=== PATIENT | female | born 1995 | race Two or more races ===

== ENCOUNTER → 2017-11-13 00:32 | Emergency (ER) | payer OTHER ==
[~2017-11-13 00:32] MED LIST: Ibuprofen TAB* 800 MG PO ONE
--- NOTE | 2017-11-13 01:29 | ED ---
Throat Pain/Nasal Congestion - HPI Summary HPI Summary: This patient is a 22 year old F presenting to [facility] with a chief complaint of for the last two days. The patient rates the pain 6/10 in severity. Patient reports trouble breathing due to pain. Patient denies fever, chills, and NVD. Pt is concerned for strep throat. - History of Current Complaint Chief Complaint: EDThroatPain Time Seen by Provider: 11/13/17 01:23 Hx Obtained From: Patient Onset/Duration: Lasting Days, Still Present Severity: Moderate Associated Signs And Symptoms: Positive: Negative - fever, chills, NVD - Allergies/Home Medications Allergies/Adverse Reactions: Allergies Allergy/AdvReac Type Severity Reaction Status Date / Time No Known Allergies Allergy Verified 11/13/17 00:45 PMH/Surg Hx/FS Hx/Imm Hx Endocrine/Hematology History: Denies: Hx Sickle Cell Disease Cardiovascular History: Denies: Hx Cardiomegaly, Hx Hypertension, Hx Peripheral Vascular Disease, Hx Rheumatic Fever Respiratory History: Denies: Hx Chronic Obstructive Pulmonary Disease (COPD), Hx Pleural Effusion GI History: Denies: Hx Gastroesophageal Reflux Disease Infectious Disease History: No Infectious Disease History: Denies: Traveled Outside the [place] in Last 30 Days - Family History Known Family History: Positive: Diabetes Negative: Respiratory Disease, Seizure Disorder - Social History Alcohol Use: Rare Hx Substance Use: No Substance Use Type: Reports: None Hx Tobacco Use: No Smoking Status (MU): Never Smoked Tobacco Review of Systems Positive: Sore Throat Positive: Other - trouble breathing due to throat pain Negative: Vomiting, Diarrhea, Nausea All Other Systems Reviewed And Are Negative: Yes Physical Exam - Summary Physical Exam Summary: VITAL SIGNS: Reviewed. GENERAL: Patient is a well-developed and nourished female who is lying comfortable in the stretcher. Patient is not in any acute respiratory distress. HEAD AND FACE: No signs of trauma. No ecchymosis, hematomas or skull depressions. No sinus tenderness. EYES: PERRLA, EOMI x 2, No injected conjunctiva, no nystagmus. EARS: Hearing grossly intact. Ear canals and tympanic membranes are within normal limits. MOUTH: Oropharynx within normal limits. NECK: Supple, trachea is midline, no adenopathy, no JVD, no carotid bruit, no c- spine tenderness, neck with full ROM. CHEST: Symmetric, no tenderness at palpation LUNGS: Clear to auscultation bilaterally. No wheezing or crackles. CVS: Regular rate and rhythm, S1 and S2 present, no murmurs or gallops appreciated. ABDOMEN: Soft, non-tender. No signs of distention. No rebound no guarding, and no masses palpated. Bowel sounds are normal. EXTREMITIES: FROM in all major joints, no edema, no cyanosis or clubbing. NEURO: Alert and oriented x 3. No acute neurological deficits. Speech is normal and follows commands. SKIN: Dry and warm Triage Information Reviewed: Yes Vital Signs On Initial Exam: Initial Vitals Temp Pulse Resp BP Pulse Ox 97.7 F 84 16 114/69 97 11/13/17 00:43 11/13/17 00:43 11/13/17 00:43 11/13/17 00:43 11/13/17 00:43 Vital Signs Reviewed: Yes Diagnostics - Vital Signs Vital Signs Temp Pulse Resp BP Pulse Ox 11/13/17 00:43 97.7 F 84 16 114/69 97 - Laboratory Lab Statement: Any lab studies that have been ordered have been reviewed, and results considered in the medical decision making process. EENT Course/Dx - Course Assessment/Plan: This patient is a 22 year old F presenting [place] [facility] with a chief complaint of for the last two days. The patient rates the pain 6/10 in severity. Patient reports trouble breathing due to pain. Patient denies fever, chills, and NVD. Pt is concerned for strep throat. Rapid strep swab was negative. Dx viral pharyngitis. In the ED course the patient was given motrin which alleviated sx. Patient will be discharged and follow up from PCP. The patient is agreeable with this plan. - Diagnoses Provider Diagnoses: Viral pharyngitis Discharge - Sign-Out/Discharge Documenting (check all that apply): Patient Departure - Discharge Plan Condition: Stable Disposition: HOME Prescriptions: Ibuprofen TAB* [Motrin TAB* 800 MG] 800 mg PO Q6H PRN #30 tab PRN Reason: Pain Patient Education Materials: Pharyngitis (ED) Referrals: [facility] [Outside] - 2 Days Additional Instructions: RETURN TO THE EMERGENCY DEPARTMENT FOR CHANGING OR WORSENING SYMPTOMS. FOLLOW UP WITH PCP IN 1-2 DAYS. - Attestation Statements Document Initiated by Scribe: Yes Documenting Scribe: Milton Porter Provider For Whom Scribe is Documenting (Include Credential): Anthony Lopez MD Scribe Attestation: IMilton , scribed for Anthony Lopez MD on 11/13/17 at 0233.
[2017-11-13 02:52] VITALS: BP 0/0
== END | disposition home or self-care (01) ==
LOC: ED 00:32
DX: J02.9 Acute pharyngitis, unspecified (principal)
CPT/HCPCS: 87651; 99282; A9270-GY